=== PATIENT | male | born 1935 | race Caucasian/White ===

== ENCOUNTER → 2016-12-13 | Outpatient (CLI) | payer OTHER, MEDICARE ==
[~2016-12-13] MED LIST: ADVIL COLD & S1 EAC1 PO; APAP500; ASPIRIN EC81 M1 PO; ASPIRIN325 PO; BACTRIM DS TAB1 EACH PO; CARDURA XL4 MG PO; CENTRUM SILVER1 EAC1 PO; CIPRO250 M1 PO; HYDROCHLOROTHIA25 M2 PO; LEVOTHROID300 MCG; MAALOX ADVANCE1 EACH PO; PLAVIX 75 MG TA75 MG PO; TOPROL XL25 MG PO; TRIMETHOBENZAM300 M1 PO; ULTRAM 50MG TAB50 MG PO; ZOCOR40 MG PO; ZOFRAN4 MG PO
== END ==
LOC: MRI 09:12
DX: M51.36 Other intervertebral disc degeneration, lumbar region (principal)

== ENCOUNTER 2017-06-17 18:21 | Inpatient (IN) | payer OTHER, MEDICARE ==
[~2017-06-17] VITALS: Ht 177.8 cm; Wt 86.2 kg
--- NOTE | ~2017-06-17 | HC ---
[facility] [place] [address] CONSULTATION Name: LUIS MCARTHUR Room #: 208-P [facility] [place] ..#: [id number] Admission: 06/17/17 Attend Phys: Huber Davison DO Discharge: 06/18/17 Date of : 35 Report #: [id number] THIS REPORT FOR: //name// CC: Huber Christopher REASON FOR CONSULTATION: Syncope. HISTORY OF PRESENT ILLNESS: The patient is an 82-year-old gentleman with history of hypertension, dyslipidemia and remote coronary stenting. His LV function is normal. He was eating dinner last night and felt lightheaded. This was followed by a flushed feeling and then transient loss of consciousness. His reported that he was staring off into space and unresponsive. ____ normal. There is no witnessed seizure activity. There is no prior history of syncope. He denies chest pain, pressure or ischemic type symptoms. No heart failure symptoms. He felt well, both before and after the event. He has been active although somewhat limited due to lower back pain. A recent echocardiogram was normal. A recent carotid duplex demonstrated plaquing. No history of palpitations. ALLERGIES: HE IS ALLERGIC TO OXYCODONE. MEDICATIONS: Include multivitamin, simvastatin 40 mg daily, metoprolol 25 mg twice daily, aspirin and levothyroxine 75 mcg daily. PAST MEDICAL HISTORY: Medical records have been reviewed and include a history of coronary artery disease with stenting in 2009, hypertension, dyslipidemia, herniorrhaphy in 2010, and right wrist fracture, casted 1970. SOCIAL HISTORY: He has never been a smoker. . FAMILY HISTORY: Unremarkable for premature coronary artery disease. REVIEW OF SYSTEMS: All systems negative except as that noted above. PHYSICAL EXAMINATION: GENERAL: A pleasant gentleman in no distress. VITAL SIGNS: Blood pressure is 136/81, heart rate of 54 and regular, respirations unlabored at 18. He is afebrile. HEENT: There are neither xanthelasma, subcutaneous xanthomata, oral mucosal or digital cyanosis or kyphoscoliosis present. CHEST: Clear to auscultation and percussion. CARDIOVASCULAR: Regular rate and rhythm with normal S1, S2. No murmurs or rubs. ABDOMEN: Soft and nontender. EXTREMITIES: Without cyanosis, clubbing or edema. Radial pulses are 2+. NEUROLOGIC: He is alert with a nonfocal exam. [facility] [address] [place] [address] CONSULTATION Name: LUIS MCARTHUR Room #: 208-P [facility] IN [facility].#: [id number] Admission: 06/17/17 Attend Phys: Huber Davison DO Discharge: 06/18/17 Date of : 35 Report #: [id number] EKG, sinus bradycardia with first degree AV block. LABORATORY DATA: Sodium is 142, potassium 3.7, creatinine 1.0. Troponin of 0. White count 5.6, hemoglobin 12, hematocrit 37, platelet count 213. Chest x-ray demonstrates minimal bibasilar atelectasis. IMPRESSION: 1. Syncope, probable bradydysrhythmia versus vasovagal event. 2. Coronary artery disease, clinically stable. 3. Hypertension. 4. Dyslipidemia. RECOMMENDATIONS: 1. Recent echocardiography and carotid duplex had been performed and reviewed and do not need to be repeated. 2. Discontinue metoprolol. 3. A 30-day event recorder. 4. No driving for an event-free interval. We will arrange outpatient followup following placement of the event recorder. For recurrent symptoms and/or symptomatic bradycardia, pacing therapy may be needed. These issues were discussed with the patient in detail. Thank you for asking me to participate in his care. <ELECTRONICALLY SIGNED> By: Douglas Elizalde MD, FACC 06/20/17 [id number] Douglas Elizalde MD, FACC /nt
--- NOTE | ~2017-06-17 | EKG ---
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 : 1935 Requested By: Victor Hugo Bolivar Order Number: [id number] MD: Douglas Elizalde Measurements Intervals [place] Rate: 64 P: 16 ME: 262 QRS: 34 QRSD: 97 T: 58 QT: 422 QTc: 436 Interpretive Statements Sinus rhythm Prolonged ME interval Nonspecific ST segment abnormality Compared to ECG 02/21/2010 07:50:11 First degree AV block now present Sinus bradycardia no longer present Electronically Signed On 06-18-2017 9:27:09 BENDER MACHINE by Douglas Elizalde [email or web address] <ELECTRONICALLY SIGNED> By: Douglas Elizalde MD, [facility] 06/18/17926 26 26 Douglas Elizalde MD, [facility] /EPI
[2017-06-17 18:22] VITALS: BP 130/88
[2017-06-17] MEDS ORDERED: SYNTHROID75 MCG PO (18:33)
[2017-06-17 18:36] LABS: HEMATOCRIT 41.5 % (42.0-52.0); HEMOGLOBIN 14.6 gm/dL (14.0-18.0); MCH 34.4 pg (26.0-34.0); MCHC 35.1 g/dL (28.0-37.0); MCV 97.9 fL (80.0-100.0); PLATELET COUNT 237 thou/uL (150-400); RBC 4.24 mil/uL (4.50-6.00); WBC 6.8 thou/uL (4.0-11.0)
[2017-06-17 18:39] LABS: MANUAL DIFF YES
[2017-06-17 18:44] LABS: ANION GAP 7 mmol/L (7-16); BUN 23 mg/dL (7-18); CALCIUM 9.4 mg/dL (8.5-10.1); CHLORIDE 105 mmol/L (98-107); CO2 29 mmol/L (21-32); CREATININE 1.2 mg/dL (0.7-1.3); GLUCOSE 153 mg/dL (74-106); POTASSIUM 3.8 mmol/L (3.5-5.1); SODIUM 141 mmol/L (136-145)
[2017-06-17 18:53] LABS: TROPONIN-I < 0.04 ng/mL (<0.06)
[2017-06-17 19:00] LABS: ABSOLUTE NEUTROPHILS 3.6 thou/uL (1.4-8.2); ANISOCYTOSIS 1+; TOTAL CELL COUNT 100
[2017-06-17 19:33] VITALS: BP 130/88
[2017-06-17 20:54] VITALS: BP 157/80
[2017-06-17 20:58] VITALS: BP 154/92
[2017-06-18] VITALS (7 sets, daily range): BP systolic 129–149; BP diastolic 78–110
[2017-06-18 03:16] LABS: HEMATOCRIT 37.7 % (42.0-52.0); HEMOGLOBIN 12.9 gm/dL (14.0-18.0); MCH 33.8 pg (26.0-34.0); MCHC 34.3 g/dL (28.0-37.0); MCV 98.7 fL (80.0-100.0); RBC 3.83 mil/uL (4.50-6.00); RDW 12.8 % (10.5-14.5); WBC 5.6 thou/uL (4.0-11.0)
[2017-06-18 03:24] LABS: CALCIUM 8.5 mg/dL (8.5-10.1); POTASSIUM 3.7 mmol/L (3.5-5.1)
== END 2017-06-18 12:45 | disposition home or self-care (01) | DRG 310 ==
LOC: ER 18:21 → 2N 19:36 → EROBS 19:36 → 2N 20:55 → ENTRNSPT 06-18 12:39 → EDTRNSPTSTS 06-18 12:41 → 2N 06-18 12:45
PROVIDERS: Nurse Practitioner Family; Physician Assistant
DX: I49.8 Other specified cardiac arrhythmias (principal); I44.0 Atrioventricular block, first degree; I10 Essential (primary) hypertension; E78.5 Hyperlipidemia, unspecified; I25.10 Atherosclerotic heart disease of native coronary artery without angina pectoris; K21.9 Gastro-esophageal reflux disease without esophagitis; E03.9 Hypothyroidism, unspecified; Z79.82 Long term (current) use of aspirin; Z95.5 Presence of coronary angioplasty implant and graft; Z98.41 Cataract extraction status, right eye; Z88.6 Allergy status to analgesic agent; Z88.8 Allergy status to other drugs, medicaments and biological substances; Z87.81 Personal history of (healed) traumatic fracture; Z79.899 Other long term (current) drug therapy
CPT/HCPCS: 10081

== ENCOUNTER 2017-12-22 09:33 | Observation (INO) | payer OTHER, MEDICARE ==
[~2017-12-22] VITALS: Ht 177.8 cm; Wt 83.9 kg
--- NOTE | ~2017-12-22 | P ---
[facility] [place] [address] PROCEDURE REPORT Name: LUIS MCARTHUR Room #: 211-P [facility] M.R.#: [id number] Admission: 12/22/17 Attend Phys: Refugio Ariza MD Discharge: Date of : 35 Report #: [id number] THIS REPORT FOR: //name// CC: Douglas Ariza [facility] HISTORY OF PRESENT ILLNESS: The patient is an 82-year-old male with a history of recurrent syncope, status post implantable loop recorder with evidence of sick sinus syndrome and sinus arrest who is here for dual chamber pacemaker implantation. ANESTHESIA: The patient underwent MAC anesthesia with no anesthesia related complications. PROCEDURES PERFORMED: 1. Dual chamber pacemaker insertion. 2. Implantable loop recorder removal. PROCEDURE: The patient underwent informed consent where we discussed the details of the procedure including the risks, which include, but not limited to bleeding, infection, vascular damage, cardiac perforation, and pneumothorax. He understood these risks and is willing to proceed. As such, the patient was brought to the EP laboratory in a fasting and sedated state, prepped and draped in a sterile fashion. Next, the patient received IV antibiotics prior to initiation of the procedure and a venogram was performed showing patency of the left axillary vein. Next, I injected lidocaine below the level of left clavicle. Incision was made. Pocket was created over the prepectoral fascia and access was obtained twice to left axillary vein using the extrathoracic approach with sheath positioned using the modified Seldinger technique. Next, under fluoroscopy, two leads were positioned into the right atrium and right ventricular apex, both with adequate pacing and sensing thresholds. The leads were sutured to the prepectoral fascia using Ethibond suture. The device was connected. A TUG test was performed. The pocket was irrigated with vancomycin and then the pocket was closed in 3 layers using 2-0 for the deep layer, 3-0 for the mid layer, and 4-0 for the subcuticular. Surgical glue was placed to the outer skin layer. Next, I injected lidocaine at the site of the Biotronik implantable loop recorder, incision was made and the device was removed. Two layers of suture using 3-0 Vicryl were used and surgical glue was placed to this incision as well. The patient awoke neurologically and hemodynamically intact. No complications and no significant bleeding. The implanted pacemaker was a [employer], model # [id number], serial #[id number]. This was an MRI compatible pacemaker, implanted due to his history of severe spine disease and the patient is to undergo a planned surgical repair of his spine in the near future. The atrial lead was a [employer] model #[id number], 52 cm, serial #[id number]. The P-wave of 3.4 millivolts, pacing impedance of 540 ohms and pacing threshold [facility] [address] [place] [address] PROCEDURE REPORT Name: LUIS MCARTHUR Room #: 211-P [facility] Ryan Hurley#: [id number] Admission: 12/22/17 Attend Phys: Refugio Ariza MD Discharge: Date of : 35 Report #: [id number] of 1 volt at 0.4 milliseconds. The RV lead was [employer] model # [id number], 58 cm, serial #[id number]. The RV lead demonstrated R-wave greater than 12 millivolts, pacing impedance of 840 ohms and pacing threshold 0.75 volts at 0.4 milliseconds. The device was a DDDR 60-130 mode. CONCLUSIONS: 1. Successful dual-chamber pacemaker implantation. 2. Satisfactory atrial and ventricular pacing and sensing thresholds. 3. Successful explantation of a [employer] BioMonitor 2. By: 1249 1533 Refugio Ariza MD /nt
[~2017-12-22 09:33] MED LIST changes: +SYNTHROID75 MCG PO
[2017-12-22 10:27] VITALS: BP 176/100
[2017-12-22 10:31] LABS: HEMATOCRIT 42.9 % (42.0-52.0); HEMOGLOBIN 14.4 gm/dL (14.0-18.0); MCH 33.4 pg (26.0-34.0); MCHC 33.7 g/dL (28.0-37.0); MCV 99.2 fL (80.0-100.0); PLATELET COUNT 268 thou/uL (150-400); RBC 4.32 mil/uL (4.50-6.00); RDW 13.4 % (10.5-14.5); WBC 5.5 thou/uL (4.0-11.0)
[2017-12-22 10:35] LABS: CALCIUM 9.4 mg/dL (8.5-10.1); POTASSIUM 3.9 mmol/L (3.5-5.1)
[2017-12-22 10:37] LABS: APTT 27.3 Seconds (24.5-32.8); PROTIME 10.7 Seconds (9.3-11.4)
[2017-12-22 10:39] LABS: ALBUMIN 3.8 g/dL (3.4-5.0); TOTAL BILIRUBIN 0.6 mg/dL (<0.1-1.0); TOTAL PROTEIN 8.1 g/dL (6.4-8.2)
[2017-12-22 11:00] LABS: ABSOLUTE NEUTROPHILS 3.3 thou/uL (1.4-8.2)
[2017-12-22 16:28] VITALS: BP 151/110
[2017-12-22 20:15] VITALS: BP 124/80
[2017-12-22 23:40] VITALS: BP 124/92
[2017-12-23 04:30] VITALS: BP 120/81
[2017-12-23 07:21] VITALS: BP 118/79
[2017-12-23] MEDS ORDERED: FLOMAX0.4 MG PO (09:02)
[2017-12-23 09:35] VITALS: BP 118/79
== END 2017-12-23 10:56 | disposition home or self-care (01) ==
LOC: CATH 09:33 → 2N 14:11
PROVIDERS: Internal Medicine Cardiovascular Disease
DX: I49.5 Sick sinus syndrome (principal); R55 Syncope and collapse; I48.91 Unspecified atrial fibrillation; I25.10 Atherosclerotic heart disease of native coronary artery without angina pectoris; I10 Essential (primary) hypertension; E78.00 Pure hypercholesterolemia, unspecified; I65.29 Occlusion and stenosis of unspecified carotid artery; Z90.89 Acquired absence of other organs; Z98.890 Other specified postprocedural states; Z95.0 Presence of cardiac pacemaker
CPT/HCPCS: 62110; 62900; 70005

== ENCOUNTER → 2019-07-12 | Outpatient (CLI) | payer OTHER, MEDICARE ==
[~2019-07-12] MED LIST changes: +FLOMAX0.4 MG PO
== END ==
LOC: SJCVC 13:38
DX: I44.0 Atrioventricular block, first degree (principal); I65.23 Occlusion and stenosis of bilateral carotid arteries; I48.0 Paroxysmal atrial fibrillation; I25.10 Atherosclerotic heart disease of native coronary artery without angina pectoris; I10 Essential (primary) hypertension; E78.5 Hyperlipidemia, unspecified; I71.2 Thoracic aortic aneurysm, without rupture; Z95.5 Presence of coronary angioplasty implant and graft; Z95.0 Presence of cardiac pacemaker

== ENCOUNTER → 2019-08-19 | Outpatient (CLI) | payer OTHER, MEDICARE | LOC: RAD 08:35 | DX: R90.82 White matter disease, unspecified (principal); M43.26 Fusion of spine, lumbar region; M43.24 Fusion of spine, thoracic region; J98.4 Other disorders of lung; G20 Parkinson's disease; I48.0 Paroxysmal atrial fibrillation; Z98.890 Other specified postprocedural states; Z86.69 Personal history of other diseases of the nervous system and sense organs; Z95.0 Presence of cardiac pacemaker ==

== ENCOUNTER → 2020-01-19 | Outpatient (CLI) | payer OTHER, MEDICARE | LOC: SJCVC 10:26 | PROVIDERS: ATTEND Internal Medicine | DX: Z45.018 Encounter for adjustment and management of other part of cardiac pacemaker (principal); I44.0 Atrioventricular block, first degree; R94.31 Abnormal electrocardiogram [ECG] [EKG]; I48.0 Paroxysmal atrial fibrillation; I65.23 Occlusion and stenosis of bilateral carotid arteries; I10 Essential (primary) hypertension; E78.5 Hyperlipidemia, unspecified; I71.2 Thoracic aortic aneurysm, without rupture; G20 Parkinson's disease; E78.00 Pure hypercholesterolemia, unspecified; Z79.899 Other long term (current) drug therapy ==

== ENCOUNTER 2020-02-07 08:25 | Emergency (ER) | payer OTHER, MEDICARE ==
[~2020-02-07] VITALS: Ht 175.3 cm; Wt 86.2 kg
[2020-02-07] MEDS ORDERED: OXYBUTYNIN 5 MG5 M2 PO (08:49)
[2020-02-07] MEDS ORDERED: CARBIDOPA-LEVO1 EA10 PO (08:50)
[2020-02-07] MEDS ORDERED: DULOXETINE HCL30 MG PO (08:51)
--- NOTE | 2020-02-07 08:51 | EKG ---
[facility] [place] [address] ELECTROCARDIOGRAM REPORT Name: LUIS MCARTHUR Room #: PRE M.R.#: [id number] Admission: Attend Phys: Discharge: Date of : 35 Report #: [id number] THIS REPORT FOR: cc: Dre Maynard David J. DO Lundgren, Craig H. MD [facility] ~ THIS REPORT FOR: //name// [facility] ED Test Date: 2020-02-07 Test Time: 08:30:43 Pat Name: LUIS MCARTHUR Department: Room: Gender: M Slack Cooper: KAYCEE : 1935 Requested By: Leigh Ramírez Order Number: [id number] MD: Douglas Elizalde Measurements Intervals [place] Rate: 74 P: -65 CT: 265 QRS: 45 QRSD: 94 T: 54 QT: 412 QTc: 457 Interpretive Statements Sinus or ectopic atrial rhythm Ventricular premature complex Prolonged CT interval Compared to ECG 06/17/2017 18:27:33 Ventricular premature complex(es) now present Electronically Signed On 02-07-2020 8:51:45 CDT by Douglas Elizalde [email or web address] <ELECTRONICALLY SIGNED> By: Douglas Elizalde MD, FACC 02/07/2051 9 9 Douglas Elizalde MD, [facility] /EPI
[2020-02-07] MEDS ORDERED: MIDODRINE HCL 55 M1 PO (08:52)
[2020-02-07] MEDS ORDERED: TRAMADOL 50 MG50 MG PO (08:52)
[2020-02-07 09:13] LABS: ABSOLUTE NEUTROPHILS 3.1 thou/uL (1.4-8.2); BASOPHILS 1.4 % (0.0-2.0); EOSINOPHILS 9.7 % (0.0-3.0); HEMATOCRIT 41.5 % (42.0-52.0); HEMOGLOBIN 14.1 gm/dL (14.0-18.0); MCH 33.9 pg (26.0-34.0); MCHC 33.9 g/dL (28.0-37.0); MCV 100.1 fL (80.0-100.0); PLATELET COUNT 234 thou/uL (150-400); POLYS 56.9 % (36.0-66.0); RBC 4.15 mil/uL (4.50-6.00); RDW 12.9 % (10.5-14.5); WBC 5.5 thou/uL (4.0-11.0)
[2020-02-07 09:30] LABS: CALCIUM 8.6 mg/dL (8.5-10.1); CREATININE 1.7 mg/dL (0.7-1.3); POTASSIUM 3.7 mmol/L (3.5-5.1)
[2020-02-07 09:44] LABS: URINE BILIRUBIN NEGATIVE (Negative); URINE BLOOD 1+ (Negative); URINE CLARITY CLEAR; URINE COLOR YELLOW; URINE GLUCOSE-RANDOM* NEGATIVE (Negative); URINE KETONES NEGATIVE (Negative); URINE LEUKOCYTES-REFLEX NEGATIVE (Negative); URINE NITRITE-REFLEX NEGATIVE (Negative); URINE PROTEIN (DIPSTICK) NEGATIVE (Negative); URINE SPECIFIC GRAVITY 1.015 (1.005-1.035); URINE UROBILINOGEN 0.2 E.U./dl (0.2-1.0)
[2020-02-07 10:46] LABS: SQUAMOUS None Seen /LPF (0-3)
[2020-02-07 10:47] LABS: BACTERIA-REFLEX 1-9 Few /HPF (None Seen); CASTS None Seen /LPF (None Seen); CRYSTALS None Seen /LPF (None Seen); URINE RBC 0-2 Rare /HPF (0-2)
[2020-02-07 10:48] LABS: URINE WBC-REFLEX 6-15 Few /HPF (0-5)
[2020-02-07 13:28] LABS: ALBUMIN 3.4 g/dL (3.4-5.0); DIRECT BILIRUBIN 0.1 mg/dL (<0.1-0.2); TOTAL BILIRUBIN 0.6 mg/dL (0.2-1.0); TOTAL PROTEIN 7.4 g/dL (6.4-8.2)
[2020-02-07] MEDS ORDERED: KEFLEX500 M1 PO (14:33)
[2020-02-07 15:03] VITALS: BP 178/96
== END 2020-02-07 15:03 | disposition home or self-care (01) ==
LOC: ER 08:25
PROVIDERS: Emergency Medicine
DX: N39.0 Urinary tract infection, site not specified (principal); R41.0 Disorientation, unspecified; R53.1 Weakness; I10 Essential (primary) hypertension; E78.5 Hyperlipidemia, unspecified; E03.9 Hypothyroidism, unspecified; K21.9 Gastro-esophageal reflux disease without esophagitis; Z90.89 Acquired absence of other organs; Z98.890 Other specified postprocedural states; Z79.899 Other long term (current) drug therapy; Z79.82 Long term (current) use of aspirin; Z88.6 Allergy status to analgesic agent; Z91.048 Other nonmedicinal substance allergy status

== ENCOUNTER → 2020-07-21 | Outpatient (CLI) | payer OTHER, MEDICARE ==
[~2020-07-21] MED LIST changes: +CARBIDOPA-LEVO1 EA10 PO; +DULOXETINE HCL30 MG PO; +KEFLEX500 M1 PO; +MIDODRINE HCL 55 M1 PO; +OXYBUTYNIN 5 MG5 M2 PO; +TRAMADOL 50 MG50 MG PO
== END ==
LOC: SJCVCIMAG 09:26
PROVIDERS: ATTEND Internal Medicine
DX: I65.23 Occlusion and stenosis of bilateral carotid arteries (principal); I08.8 Other rheumatic multiple valve diseases; R94.31 Abnormal electrocardiogram [ECG] [EKG]; I11.9 Hypertensive heart disease without heart failure; I25.10 Atherosclerotic heart disease of native coronary artery without angina pectoris; I48.0 Paroxysmal atrial fibrillation; G20 Parkinson's disease; E78.5 Hyperlipidemia, unspecified; I71.2 Thoracic aortic aneurysm, without rupture; E78.00 Pure hypercholesterolemia, unspecified; Z98.890 Other specified postprocedural states; Z79.82 Long term (current) use of aspirin; Z79.899 Other long term (current) drug therapy